=== PATIENT | female | born 1990 ===

== ENCOUNTER 2019-05-16 00:45 | Emergency (ER) | payer OTHER ==
[~2019-05-16] VITALS: Ht 172.7 cm; Wt 77.1 kg
[~2019-05-16 00:45] MED LIST: ALDOMET500 MG PO; FEOSOL1 TAB PO
[2019-05-16] MEDS ORDERED: ZYNCOF 20-400120 ML PO (05:35)
[2019-05-16] MEDS ORDERED: OSEL75CA PO (05:35)
[2019-05-16] MEDS ORDERED: ALBUTEROL2.5 MG/3 M IH (05:35)
[2019-05-16] MEDS ORDERED: ALLEGRA-D 12 H1 EACH PO (05:35)
== END 2019-05-16 05:45 | disposition home or self-care (01) ==
LOC: ER 00:45 → EDBD 00:50 → ER 05:45
DX: J11.1 Influenza due to unidentified influenza virus with other respiratory manifestations (principal)

== ENCOUNTER 2021-05-28 16:17 | Emergency (ER) | payer OTHER ==
[~2021-05-28] VITALS: Ht 172.7 cm; Wt 86.2 kg
[~2021-05-28 16:17] MED LIST changes: +ALBUTEROL2.5 MG/3 M IH; +ALLEGRA-D 12 H1 EACH PO; +OSEL75CA PO; +ZYNCOF 20-400120 ML PO
== END 2021-05-28 18:36 | disposition home or self-care (01) ==
LOC: ER 16:17
DX: R09.81 Nasal congestion (principal)

== ENCOUNTER 2021-10-25 23:59 | Emergency (ER) | payer OTHER ==
[~2021-10-25] VITALS: Ht 172.7 cm; Wt 84.4 kg
[2021-10-26] MEDS ORDERED: PEPCID AC20 MG PO (04:13)
[2021-10-26] MEDS ORDERED: CARAFATE1 GM PO (04:13)
[2021-10-26] MEDS ORDERED: PREPARATION H C26 GM RECTAL (04:13)
[2021-10-26] MEDS ORDERED: LEVSIN0.125 MG PO (04:13)
== END 2021-10-26 05:42 | disposition home or self-care (01) ==
LOC: ER 23:59
DX: R10.84 Generalized abdominal pain (principal); K64.8 Other hemorrhoids

== ENCOUNTER 2022-11-24 12:58 | Emergency (ER) | payer OTHER ==
[~2022-11-24] VITALS: Ht 172.7 cm; Wt 87.1 kg
[~2022-11-24 12:58] MED LIST changes: +ACETAMINOPHEN650 M2; +CARAFATE1 GM PO; +LEVSIN0.125 MG PO; +PEPCID AC20 MG PO; +PREPARATION H C26 GM RECTAL
== END 2022-11-24 17:59 | disposition home or self-care (01) ==
LOC: ER 12:58
DX: S80.02XA Contusion of left knee, initial encounter (principal); W00.0XXA Fall on same level due to ice and snow, initial encounter; Y93.21 Activity, ice skating; Y92.89 Other specified places as the place of occurrence of the external cause; Y99.9 Unspecified external cause status; Z88.8 Allergy status to other drugs, medicaments and biological substances